=== PATIENT | female | born 1995 | race African-American/Black ===

== ENCOUNTER 2017-05-21 21:39 | Emergency (ER) | payer SELFPAY, OTHER | END 2017-05-21 22:15 | disposition left against medical advice (07) | LOC: ER 21:39 | DX: M54.5 Low back pain (principal); M79.609 Pain in unspecified limb; Z53.21 Procedure and treatment not carried out due to patient leaving prior to being seen by health care provider ==

== ENCOUNTER 2017-10-29 21:15 | Emergency (ER) | payer SELFPAY ==
[2017-10-29 22:35] LABS: URINE HCG POC HCG POSITIVE (Negative)
[2017-10-29 22:35] LABS: BILIRUBIN,URINE NEGATIVE (NEG); CLARITY,URINE CLEAR; COLOR,URINE YELLOW; GLUCOSE,URINE NEGATIVE (NEG); NITRITE,URINE NEGATIVE (NEG); PROTEIN,URINE NEGATIVE (NEG-TRACE)
[2017-10-29 22:42] LABS: AMORPHOUS SEDIMENT,UR PRESENT /HPF; BACTERIA,URINE FEW /HPF (0-FEW); RBC,URINE OCC /HPF (0-2); SQUAMOUS EPITHELIAL CELL,UR FEW /LPF; TRICHOMONAS,URINE PRESENT; WBC,URINE 20-40 /HPF (0-4)
[2017-10-29 23:07] LABS: ADD MAN DIFF? NO
[2017-10-29 23:10] LABS: BASO % 0 % (0-3); EOS # 0.1 x10^3/uL (0.0-0.7); EOS % 1 % (0-3); HEMATOCRIT 40.9 % (36.0-47.0); LYMPH % 31 % (24-48); MEAN CORPUSCULAR HEMOGLOBIN 30 pg (25-35); MEAN CORPUSCULAR HGB CONC 34 g/dL (31-37); MEAN CORPUSCULAR VOLUME 86 fL (79-100); MONO # 0.6 x10^3/uL (0.0-1.1); MONO % 6 % (0-9); NEUT % 61 % (31-73); PLATELET COUNT 295 x10^3/uL (140-400); RED BLOOD COUNT 4.75 x10^6/uL (3.50-5.40); RED CELL DISTRIBUTION WIDTH 12.8 % (11.5-14.5); WHITE BLOOD COUNT 9.8 x10^3/uL (4.0-11.0)
[2017-10-29 23:18] LABS: ANION GAP 6 (6-14); BLOOD UREA NITROGEN 7 mg/dL (7-20); BUN/CREATININE RATIO 12 (6-20); CALCIUM 9.3 mg/dL (8.5-10.1); CARBON DIOXIDE 28 mmol/L (21-32); CHLORIDE 105 mmol/L (98-107); CREATININE 0.6 mg/dL (0.6-1.0); GFR 154.2; GLUCOSE 78 mg/dL (70-99); POTASSIUM 3.8 mmol/L (3.5-5.1); SODIUM 139 mmol/L (136-145)
[2017-10-29 23:24] LABS: ALBUMIN 4.2 g/dL (3.4-5.0); ALBUMIN/GLOBULIN RATIO 1.2 (1.0-1.7); ALK PHOS 73 U/L (46-116); ALT (SGPT) 17 U/L (14-59); AST (SGOT) 15 U/L (15-37); LIPASE 213 U/L (73-393); TOTAL PROTEIN 7.8 g/dL (6.4-8.2)
[2017-10-29] MEDS: AZITHROMYCIN 250 MG TABLET. PO (23:40)
[2017-10-29] MEDS: cefTRIAXone IM 250 MG VIAL IM (23:40)
[2017-10-29] MEDS: metroNIDAZOLE 500 MG TABLET PO (23:54)
== END 2017-10-29 23:57 | disposition home or self-care (01) ==
LOC: ER 23:57
DX: O23.40 Unspecified infection of urinary tract in pregnancy, unspecified trimester (principal); O98.319 Other infections with a predominantly sexual mode of transmission complicating pregnancy, unspecified trimester; A59.01 Trichomonal vulvovaginitis; Z3A.00 Weeks of gestation of pregnancy not specified
CPT/HCPCS: 36415; 80053; 81001; 81025; 83690; 83735; 84702; 85025; 96372; 99284; J0696; Q0111; Q0144

== ENCOUNTER 2017-11-02 01:09 | Emergency (ER) | payer SELFPAY ==
[2017-11-02 01:46] LABS: ADD MAN DIFF? NO
[2017-11-02 01:47] LABS: BASO % 0 % (0-3); EOS # 0.2 x10^3/uL (0.0-0.7); EOS % 2 % (0-3); HEMATOCRIT 37.9 % (36.0-47.0); LYMPH # 3.4 x10^3/uL (1.0-4.8); LYMPH % 29 % (24-48); MEAN CORPUSCULAR HEMOGLOBIN 30 pg (25-35); MEAN CORPUSCULAR HGB CONC 34 g/dL (31-37); MEAN CORPUSCULAR VOLUME 86 fL (79-100); MONO # 0.6 x10^3/uL (0.0-1.1); MONO % 5 % (0-9); NEUT # 7.5 x10^3uL (1.8-7.7); NEUT % 64 % (31-73); PLATELET COUNT 308 x10^3/uL (140-400); RED BLOOD COUNT 4.38 x10^6/uL (3.50-5.40); RED CELL DISTRIBUTION WIDTH 12.8 % (11.5-14.5); WHITE BLOOD COUNT 11.8 x10^3/uL (4.0-11.0)
== END 2017-11-02 03:05 | disposition home or self-care (01) ==
LOC: ER 01:09
DX: O03.9 Complete or unspecified spontaneous abortion without complication (principal); Z3A.00 Weeks of gestation of pregnancy not specified
CPT/HCPCS: 36415; 84702; 85025; 99284

== ENCOUNTER 2018-01-08 12:26 | Emergency (ER) | payer SELFPAY ==
[~2018-01-08] VITALS: Ht 165.1 cm; Wt 54.4 kg
[~2018-01-08 12:26] MED LIST: CEPH-264 PO; METR500T PO; PNV1TABL25 PO
[2018-01-08 12:34] VITALS: BP 121/67
[2018-01-08 13:23] LABS: BILIRUBIN,URINE NEGATIVE (NEG); CLARITY,URINE CLEAR; COLOR,URINE YELLOW; NITRITE,URINE NEGATIVE (NEG); PROTEIN,URINE NEGATIVE (NEG-TRACE)
[2018-01-08 13:34] LABS: SQUAMOUS EPITHELIAL CELL,UR MANY /LPF
[2018-01-08 13:35] LABS: BACTERIA,URINE FEW /HPF (0-FEW); RBC,URINE 0 /HPF (0-2)
[2018-01-08] MEDS: AZITHROMYCIN 250 MG TABLET. PO ONE (13:49)
[2018-01-08] MEDS: cefTRIAXone IM 250 MG VIAL IM ONE (13:50)
[2018-01-08] MEDS ORDERED: NITR100C62 PO (14:16)
--- NOTE | 2018-01-08 14:17 | PHYS DOC ---
Past Medical History Past Medical History: No Pertinent History Past Surgical History: No Surgical History Alcohol Use: None Drug Use: None Adult General Chief Complaint Chief Complaint: VAGINAL PROBLEM HPI HPI Patient is a 22 year old female who presents with low mid abdominal cramping and vaginal discharge for the last 2 weeks. Patient states she is sexually active and her last missed her period was December 24. He states that she does have some itching. He states her discharge is white. Patient denies any urinary frequency or burning with urination. She has no known drug allergies and takes no medications daily has no medical history and denies any surgical history. Review of Systems Review of Systems Constitutional: Denies fever or chills [] Eyes: Denies change in visual acuity, redness, or eye pain [] HENT: Denies nasal congestion or sore throat [] Respiratory: Denies cough or shortness of breath [] Cardiovascular: No additional information not addressed in HPI [] GI: Denies abdominal pain, nausea, vomiting, bloody stools or diarrhea [] : Vaginal discharge. Denies dysuria or hematuria [] Musculoskeletal: Denies back pain or joint pain [] Integument: Denies rash or skin lesions [] Neurologic: Denies headache, focal weakness or sensory changes [] All other systems were reviewed and found to be within normal limits, except as documented in this note. Current Medications Current Medications Current Medications Medications (Trade) Dose Ordered Sig/Laura Start Time Stop Time Status Last Admin Dose Admin Azithromycin (Zithromax) 1,000 mg 1X ONCE 01/08/18 13:00 01/08/18 13:03 DC 01/08/18 13:49 1,000 MG Ceftriaxone Sodium (Rocephin Im) 250 mg 1X ONCE 01/08/18 13:00 01/08/18 13:03 UT Allergies Allergies Allergies Coded Allergies Type Severity Reaction Last Updated Verified No Known Drug Allergies 06/23/13 No Physical Exam Physical Exam Constitutional: Well developed, well nourished, no acute distress, non-toxic appearance. [] HENT: Normocephalic, atraumatic, bilateral external ears normal, oropharynx moist, no oral exudates, nose normal. [] Eyes: PERRLA, EOMI, conjunctiva normal, no discharge. [] Neck: Normal range of motion, no tenderness, supple, no stridor. [] Cardiovascular:Heart rate regular rhythm, no murmur [] Lungs & Thorax: Bilateral breath sounds clear to auscultation [] Abdomen: Bowel sounds normal, soft, no tenderness, no masses, no pulsatile masses. Cervical white discharge.[] Skin: Warm, dry, no erythema, no rash. [] Back: No tenderness, no CVA tenderness. [] Extremities: No tenderness, no cyanosis, no clubbing, ROM intact, no edema. [] Neurologic: Alert and oriented X 3, normal motor function, normal sensory function, no focal deficits noted. [] Psychologic: Affect normal, judgement normal, mood normal. [] Current Patient Data Vital Signs Vital Signs Date Time Temp Pulse Resp B/P (MAP) Pulse Ox O2 Delivery O2 Flow Rate FiO2 01/08/18 12:34 98.8 83 16 121/67 (85) 100 Room Air 98.8 Lab Values Laboratory Tests Test 01/08/18 12:32 01/08/18 12:47 01/08/18 13:40 Urine Collection Type Unknown Urine Color Yellow Urine Clarity Clear Urine pH 7.0 Urine Specific [place] 1.020 Urine Protein Negative mg/dL (NEG-TRACE) Urine Glucose (UA) Negative mg/dL (NEG) Urine Ketones (Stick) Negative mg/dL (NEG) Urine Blood Negative (NEG) Urine Nitrite Negative (NEG) Urine Bilirubin Negative (NEG) Urine Urobilinogen Dipstick 1.0 mg/dL (0.2 mg/dL) Urine Leukocyte Esterase Small (NEG) Urine RBC 0 /HPF (0-2) Urine WBC 5-10 /HPF (0-4) Urine Squamous Epithelial Cells Many /LPF Urine Bacteria Few /HPF (0-FEW) Urine Mucus Slight /LPF POC Urine HCG, Qualitative Hcg negative (Negative) Chlamydia DNA Probe Negative (Negative) Neisseria gonorrhoeae DNA Probe Negative (Negative) Microbiology 01/08/18 Wet Prep - Final, Complete 01/08/18 Urine Culture - Final, Complete 01/08/18 Urine Culture Result 1 (HOWARD) - Final, Complete EKG EKG [] Radiology/Procedures Radiology/Procedures [] Course & Med Decision Making Course & Med Decision Making Patient is a 22 year old female who presents with low mid abdominal cramping and vaginal discharge for the last 2 weeks. Patient states she is sexually active and her last missed her period was December 24. He states that she does have some itching. He states her discharge is white. Patient denies any urinary frequency or burning with urination. She has no known drug allergies and takes no medications daily has no medical history and denies any surgical history. Patient agreed to be treated prophylactically for sexually transmitted diseases but would only take the azithromycin and refuses the Rocephin IM. Patient states she did rather just wait to see if she goes back with any STDs before she takes the Rocephin. Patient has no external vaginal lesions or redness. Patient does have cervical white discharge. Abdomen is soft and nontender. Lungs are clear bilaterally. Heart rate regular and without murmur. Patient will be treated for urinary tract infection. [] Staff Physician Addendum: I was working in the ER during the course of this patient's visit. I was available for consultation as needed, but I was not directly involved in the care of this patient. Dragon Disclaimer Dragon Disclaimer This electronic medical record was generated, in whole or in part, using a voice recognition dictation system. Departure Departure Impression: Primary Impression: Vaginal discharge Additional Impression: Urinary tract infection Disposition: 01 HOME, SELF-CARE Condition: STABLE Referrals: NO PCP (PCP) Patient Instructions: Sexually Transmitted Disease, Urinary Tract Infection Additional Instructions: Follow up with your primary care. Take medications as prescribed. Scripts Nitrofurantoin Monohyd/M-Cryst (MACROBID 100 MG CAPSULE) 100 Mg Capsule 1 CAP PO BID, #10 CAP Prov: MASON HOOKS APRN 01/08/18 Problem Qualifiers Additional Impression: Urinary tract infection Urinary tract infection type: site unspecified Hematuria presence: without hematuria Qualified Codes: N39.0 - Urinary tract infection, site not specified MASON HOOKS APRN Jan 08, 2018 14:17 JAVI MUJICA MD Jan 12, 2018 18:27
[2018-01-09 15:35] LABS: GC PROBE Negative (Negative)
== END 2018-01-08 14:20 | disposition home or self-care (01) ==
LOC: ER 12:26
DX: N39.0 Urinary tract infection, site not specified (principal); N89.8 Other specified noninflammatory disorders of vagina
CPT/HCPCS: 81001; 81025; 87086; 87491; 87591; 99284; Q0111; Q0144

== ENCOUNTER 2018-03-08 19:57 | Emergency (ER) | payer MEDICAID ==
[~2018-03-08] VITALS: Ht 165.1 cm; Wt 56.7 kg
[~2018-03-08 19:57] MED LIST changes: +NITR100C62 PO
[2018-03-08 20:27] LABS: BILIRUBIN,URINE NEGATIVE (NEG); CLARITY,URINE CLEAR; COLOR,URINE YELLOW; NITRITE,URINE NEGATIVE (NEG); PH,URINE 5.5; PROTEIN,URINE 100 mg/dL (NEG-TRACE); UROBILINOGEN,URINE 0.2 mg/dL (0.2 mg/dL)
[2018-03-08 20:39] LABS: BACTERIA,URINE MOD /HPF (0-FEW); RBC,URINE 0 /HPF (0-2); SQUAMOUS EPITHELIAL CELL,UR MOD /LPF
[2018-03-08 20:44] VITALS: BP 102/61
--- NOTE | 2018-03-08 21:21 | PHYS DOC ---
Past Medical History Past Medical History: UTI Past Surgical History: No Surgical History Alcohol Use: None Drug Use: None Adult General Chief Complaint Chief Complaint: ABDOMINAL PAIN HPI HPI Patient is a 22 year old female in no significant medical history who presents today complaining of substernal chest pain that only occurs at work intermittently for 2 weeks. Patient states this pain is stress related to her job. She states she thinks she could have acid reflex but she is not sure. Patient denies any pain right now in the ED. She is playful talking in no distress. Denies any chance she is . Denies any nausea vomiting. Denies any use of hormones all steroids, denies any recent hospitalizations, denies any personal family history of PEs/DVT, denies any shortness of breath, denies any recent surgeries, denies any unilateral leg pain. Review of Systems Review of Systems Constitutional: Denies fever or chills [] Eyes: Denies change in visual acuity, redness, or eye pain [] HENT: Denies nasal congestion or sore throat [] Respiratory: Denies cough or shortness of breath [] Cardiovascular: Reports substernal chest GI: Denies abdominal pain, nausea, vomiting, bloody stools or diarrhea [] : Denies dysuria or hematuria [] Musculoskeletal: Denies back pain or joint pain [] Integument: Denies rash or skin lesions [] Neurologic: Denies headache, focal weakness or sensory changes [] All other systems were reviewed and found to be within normal limits, except as documented in this note. Allergies Allergies Allergies Coded Allergies Type Severity Reaction Last Updated Verified No Known Drug Allergies 06/23/13 No Physical Exam Physical Exam Constitutional: Well developed, well nourished, no acute distress, non-toxic appearance. [] HENT: Normocephalic, atraumatic, bilateral external ears normal, oropharynx moist, no oral exudates, nose normal. [] Eyes: PERRLA, EOMI, conjunctiva normal, no discharge. [] Neck: Normal range of motion, no tenderness, supple, no stridor. [] Cardiovascular:Heart rate regular rhythm, no murmur [] Lungs & Thorax: Bilateral breath sounds clear to auscultation [] Abdomen: Bowel sounds normal, soft, no tenderness, no masses, no pulsatile masses. [] Skin: Warm, dry, no erythema, no rash. [] Back: No tenderness, no CVA tenderness. [] Extremities: No tenderness, no cyanosis, no clubbing, ROM intact, no edema. [] Neurologic: Alert and oriented X 3, normal motor function, normal sensory function, no focal deficits noted. [] Psychologic: Affect normal, judgement normal, mood normal. [] Current Patient Data Vital Signs Vital Signs Date Time Temp Pulse Resp B/P (MAP) Pulse Ox O2 Delivery O2 Flow Rate FiO2 03/08/18 20:00 98.3 89 16 126/70 (88) 98 Room Air 98.3 Lab Values Laboratory Tests Test 03/08/18 20:08 03/08/18 20:21 Urine Collection Type Unknown Urine Color Yellow Urine Clarity Clear Urine pH 5.5 Urine Specific [place] 1.015 Urine Protein 100 mg/dL (NEG-TRACE) Urine Glucose (UA) Negative mg/dL (NEG) Urine Ketones (Stick) Negative mg/dL (NEG) Urine Blood Negative (NEG) Urine Nitrite Negative (NEG) Urine Bilirubin Negative (NEG) Urine Urobilinogen Dipstick 0.2 mg/dL (0.2 mg/dL) Urine Leukocyte Esterase Negative (NEG) Urine RBC 0 /HPF (0-2) Urine WBC 1-4 /HPF (0-4) Urine Squamous Epithelial Cells Mod /LPF Urine Bacteria Mod /HPF (0-FEW) Urine Mucus Mod /LPF POC Urine HCG, Qualitative Hcg negative (Negative) EKG EKG [] Radiology/Procedures Radiology/Procedures [] Course & Med Decision Making Course & Med Decision Making Pertinent Labs and Imaging studies reviewed. (See chart for details) This is a 22-year-old female patient presented to the ED today complaining of substernal chest pain that only occurs when she is at work. No pain right now. Patient is playful distress, negative urine hCG, urine analysis is negative for infection. PERC score is 0. Vitals are normal. Will be discharged to home. Follow-up with her own PCP in 1-2 weeks. Dragon Disclaimer Dragon Disclaimer This electronic medical record was generated, in whole or in part, using a voice recognition dictation system. Departure Departure Impression: Primary Impression: Chest pain Additional Impression: Acid reflux Disposition: HOME, SELF-CARE Condition: STABLE Referrals: NO PCP (PCP) follow up with your doctor as needed Patient Instructions: Chest Pain (Nonspecific), Diet for Gastroesophageal Reflux Disease, Adult, Gastroesophageal Reflux Disease, Adult Additional Instructions: You were evaluated in the emergency room. Consider reducing your stress levels at work. You can take with Zantac OTC and see if it relieves some your symptoms . Problem Qualifiers Primary Impression: Chest pain Chest pain type: unspecified Qualified Codes: R07.9 - Chest pain, unspecified CHET MORGAN BUS TROLLEY AND TAXI INSTRUCTOR Mar 08, 2018 21:21
== END 2018-03-08 21:30 | disposition home or self-care (01) ==
LOC: ER 19:57
DX: R07.2 Precordial pain (principal); K21.9 Gastro-esophageal reflux disease without esophagitis; Z87.440 Personal history of urinary (tract) infections
CPT/HCPCS: 81001; 81025; 99283

== ENCOUNTER 2018-08-23 13:58 | Emergency (ER) | payer MEDICAID, SELFPAY ==
[~2018-08-23] VITALS: Ht 165.1 cm; Wt 56.7 kg
[2018-08-23] MEDS ORDERED: PROCHLORPERAZINE 5 MG TABLET. PO STA (15:18)
[2018-08-23 15:25] LABS: BILIRUBIN,URINE NEGATIVE (NEG); CLARITY,URINE CLEAR; COLOR,URINE YELLOW; NITRITE,URINE NEGATIVE (NEG); PH,URINE 6.5; PROTEIN,URINE NEGATIVE (NEG-TRACE); UROBILINOGEN,URINE 0.2 mg/dL (0.2 mg/dL)
[2018-08-23] MEDS ORDERED: SUMAtriptan SUCCINATE 25 MG TABLET PO ONE (15:30)
[2018-08-23] MEDS ORDERED: ONDANSETRON ODT 4 MG TAB.RAPDIS. PO ONE (15:30)
[2018-08-23] MEDS ORDERED: predniSONE 10 MG TABLET PO ONE (15:30)
[2018-08-23] MEDS ORDERED: diphenhydrAMINE HCL 25 MG CAPSULE PO ONE (15:30)
[2018-08-23 15:36] LABS: BACTERIA,URINE MOD /HPF (0-FEW); SQUAMOUS EPITHELIAL CELL,UR MOD /LPF
--- NOTE | 2018-08-23 15:37 | EKG ---
[facility] [address] [place] [address] Test Date: 2018-08-23 Test Time: 15:38:37 Pat Name: JEROME FIELDS Department: Room: Gender: F Contracting Support Specialist: : 1995 Requested By: CHET MORGAN Order Number: [id number] Reading MD: Measurements Intervals [place] Rate: 68 P: 52 MD: 158 QRS: 87 QRSD: 70 T: 48 QT: 340 QTc: 366 Interpretive Statements SINUS RHYTHM LEFT ATRIAL ABNORMALITY QRS(T) CONTOUR ABNORMALITY CONSIDER ANTEROSEPTAL MYOCARDIAL DAMAGE ABNORMAL ECG RI6.01 Unconfirmed report No previous ECG available for comparison
[2018-08-23 16:00] VITALS: BP 111/68
--- NOTE | 2018-08-23 17:38 | PHYS DOC ---
Past Medical History Past Medical History: No Pertinent History, UTI Past Surgical History: No Surgical History Alcohol Use: None Drug Use: None Adult General Chief Complaint Chief Complaint: ANXIETY/PANIC ATTACK HPI HPI Patient is a 23 year old female with history of migraine headaches presenting today complaining of 10 out of 10 generalized migraine headache with no nausea, no vomiting no photophobia, symptoms began 2 days ago. She states the headache i s intermittent and began gradually. Denies this being the worst headache in her life. Denies anything specifically exacerbating or relieving the headache. She is in the room smiling in no distress. She states some O she was sitting in the waiting room and developed 10 out of 10 left upper chest pain. Denies any pain radiating. Denies anything relieving or exacerbating the pain. Describes the pain as sharp. Denies being on any control any hormones, denies any recent hospitalizations. Denies any unilateral leg pain. Denies any chance she is . Denies any shortness of breath. Denies any family or personal history of cardiac related events. Review of Systems Review of Systems Constitutional: Denies fever or chills [] Eyes: Denies change in visual acuity, redness, or eye pain [] HENT: Denies nasal congestion or sore throat [] Respiratory: Denies cough or shortness of breath [] Cardiovascular: Reports chest pain GI: Denies abdominal pain, nausea, vomiting, bloody stools or diarrhea [] : Denies dysuria or hematuria [] Musculoskeletal: Denies back pain or joint pain [] Integument: Denies rash or skin lesions [] Neurologic: He reports migraine headache, denies focal weakness or sensory changes [] All other systems were reviewed and found to be within normal limits, except as documented in this note. Current Medications Current Medications Current Medications Medications (Trade) Dose Ordered Sig/Laura Start Time Stop Time Status Last Admin Dose Admin Diphenhydramine HCl (Benadryl) 25 mg 1X ONCE 08/23/18 15:30 08/23/18 15:31 DC Ondansetron HCl (Zofran Odt) 4 mg 1X ONCE 08/23/18 15:30 08/23/18 15:31 DC Prednisone (Prednisone) 50 mg 1X ONCE 08/23/18 15:30 08/23/18 15:31 DC Prochlorperazine Maleate (Compazine) 10 mg 1X STAT 08/23/18 15:18 08/23/18 15:19 DC Sumatriptan Succinate (Imitrex) 25 mg 1X ONCE 08/23/18 15:30 08/23/18 15:31 DC Allergies Allergies Allergies Coded Allergies Type Severity Reaction Last Updated Verified No Known Drug Allergies 08/23/18 No Physical Exam Physical Exam Constitutional: Well developed, well nourished, no acute distress, non-toxic appearance. [] HENT: Normocephalic, atraumatic, bilateral external ears normal, oropharynx moist, no oral exudates, nose normal. [] Eyes: PERRLA, EOMI, conjunctiva normal, no discharge. [] Neck: Normal range of motion, no tenderness, supple, no stridor. [] Cardiovascular:Heart rate regular rhythm, no murmur [] Lungs & Thorax: Bilateral breath sounds clear to auscultation [] Abdomen: Bowel sounds normal, soft, no tenderness, no masses, no pulsatile masses. [] Skin: Warm, dry, no erythema, no rash. [] Back: No tenderness, no CVA tenderness. [] Extremities: No tenderness, no cyanosis, no clubbing, ROM intact, no edema. [] Neurologic: Alert and oriented X 3, normal motor function, normal sensory function, no focal deficits noted. [] Psychologic: Affect normal, judgement normal, mood normal. [] Current Patient Data Vital Signs Vital Signs Date Time Temp Pulse Resp B/P (MAP) Pulse Ox O2 Delivery O2 Flow Rate FiO2 08/23/18 16:00 76 15 111/68 (82) 100 Room Air 08/23/18 14:15 98.8 98.8 Lab Values Laboratory Tests Test 08/23/18 14:50 08/23/18 14:56 Urine Collection Type Unknown Urine Color Yellow Urine Clarity Clear Urine pH 6.5 Urine Specific [place] 1.025 Urine Protein Negative mg/dL (NEG-TRACE) Urine Glucose (UA) Negative mg/dL (NEG) Urine Ketones (Stick) Negative mg/dL (NEG) Urine Blood Trace (NEG) Urine Nitrite Negative (NEG) Urine Bilirubin Negative (NEG) Urine Urobilinogen Dipstick 0.2 mg/dL (0.2 mg/dL) Urine Leukocyte Esterase Moderate (NEG) Urine RBC 1-2 /HPF (0-2) Urine WBC 11-20 /HPF (0-4) Urine Squamous Epithelial Cells Mod /LPF Urine Bacteria Mod /HPF (0-FEW) Urine Mucus Mod /LPF POC Urine HCG, Qualitative Hcg negative (Negative) EKG EKG 14:[address] Hammonds sinus rhythm HR 72 no STEMI[] Radiology/Procedures Radiology/Procedures [] Course & Med Decision Making Course & Med Decision Making Pertinent Labs and Imaging studies reviewed. (See chart for details) This is a 23-year-old female patient presenting to the ED today with a migraine headache and chest pain. I ordered workup on patient, she eloped. Dragon Disclaimer Dragon Disclaimer This electronic medical record was generated, in whole or in part, using a voice recognition dictation system. Departure Departure Impression: Primary Impression: Migraine headache Additional Impression: Chest pain Disposition: 07 AGAINST MEDICAL ADVICE Condition: STABLE Referrals: NO PCP (PCP) Problem Qualifiers Primary Impression: Migraine headache Migraine type: unspecified Status migrainosus presence: without status migrainosus Intractability: not intractable Qualified Codes: G43.909 - Migraine, unspecified, not intractable, without status migrainosus Additional Impression: Chest pain Chest pain type: unspecified Qualified Codes: R07.9 - Chest pain, unspecified MUTUNGACHET PAINTER DECORATOR August 23, 2018 17:38
--- NOTE | 2018-08-25 11:35 | EKG ---
[facility] [address] [place] [address] Test Date: 2018-08-23 Test Time: 14:23:44 Pat Name: JEROME FIELDS Department: Room: Gender: F Deputy County Attorney: : 1995 Requested By: CHET MORGAN Order Number: [id number] Reading MD: Measurements Intervals [place] Rate: 72 P: 34 RI: 148 QRS: 88 QRSD: 70 T: 34 QT: 334 QTc: 367 Interpretive Statements SINUS RHYTHM QRS(T) CONTOUR ABNORMALITY CONSIDER ANTEROSEPTAL MYOCARDIAL DAMAGE POSSIBLY ABNORMAL ECG RI6.01 No previous ECG available for comparison
== END 2018-08-23 17:43 | disposition left against medical advice (07) ==
LOC: ER 13:58
DX: G43.909 Migraine, unspecified, not intractable, without status migrainosus (principal); R07.89 Other chest pain
CPT/HCPCS: 81001; 81025; 93005; 99285-25

== ENCOUNTER 2019-11-25 16:35 | Emergency (ER) | payer MEDICAID, OTHER ==
[~2019-11-25] VITALS: Ht 165.1 cm; Wt 59.0 kg
[2019-11-25 18:00] VITALS: BP 129/59
[2019-11-25] MEDS ORDERED: TRIA15CR TP (18:44)
--- NOTE | 2019-11-25 18:45 | PHYS DOC ---
Past Medical History Past Medical History: No Pertinent History, UTI (JORDY VILLALOBOS APRN) Past Surgical History: No Surgical History (JORDY VILLALOBOS APRN) Smoking Status: Never Smoker Alcohol Use: None Drug Use: None (JORDY VILLALOBOS APRN) General Adult EDM: Chief Complaint: SKIN RASH/ABSCESS HPI: HPI: Patient is a 24 year old AA female who presents to the emergency department with complaints of itchy rash to her neck and bilateral antecubital areas for the last week. She reports that her skin feels dry and itchy and alaniz when she gets water on it. She denies any drainage, or bleeding from the areas. She denies any new medications, detergents, foods, fragrances, or environmental exposures. The patient currently denies any pain she reports itching. (JORDY VILLALOBOS APRN) Review of Systems: Review of Systems: Constitutional: Denies fever or chills. [] Respiratory: Denies cough or shortness of breath. [] Musculoskeletal: Denies back pain or joint pain. [] Integument: See HPI Neurologic: Denies headache, focal weakness or sensory changes. [] Psychiatric: Denies depression or anxiety. [] (JORDY VILLALOBOS APRN) Heart Score: Risk Factors: Risk Factors: DM, Current or recent (<one month) smoker, HTN, HLP, family history of CAD, obesity. Risk Scores: Score 0 - 3: 2.5% MACE over next 6 weeks - Discharge Home Score 4 - 6: 20.3% MACE over next 6 weeks - Admit for Clinical Observation Score 7 - 10: 72.7% MACE over next 6 weeks - Early Invasive Strategies (JORDY VILLALOBOS APRN) Allergies: Allergies: Allergies Coded Allergies Type Severity Reaction Last Updated Verified No Known Drug Allergies 08/23/18 No (JORDY VILLALOBOS APRN) Physical Exam: PE: Constitutional: Well developed, well nourished, no acute distress, non-toxic appearance. [] HENT: Normocephalic, atraumatic, bilateral external ears normal, nose normal. [] Eyes: PERRLA, EOMI, conjunctiva normal, no discharge. [] Neck: Normal range of motion, no stridor. [] Cardiovascular:Heart rate regular rhythm Lungs & Thorax: Respirations even and unlabored, no retractions, no respiratory distress Skin: Warm, dry; scaly, dry, darkened skin noted over the bilateral antecubital spaces, and left side of the neck, consistent with atopic dermatitis, no drainage or bleeding. Extremities: No cyanosis, ROM intact, no edema. [] Neurologic: Alert and oriented X 3, no focal deficits noted. [] Psychologic: Affect normal, judgement normal, mood normal. [] (JORDY VILLALOBOS APRN) Current Patient Data: Vital Signs: Vital Signs Date Time Temp Pulse Resp B/P (MAP) Pulse Ox O2 Delivery O2 Flow Rate FiO2 11/25/19 17:36 97.2 84 16 112/60 (77) Room Air 97.2 (JORDY VILLALOBOS APRN) EKG: EKG: [] (JORDY VILLALOBOS APRN) Radiology/Procedures: Radiology/Procedures: [] (JORDY VILLALOBOS APRN) Course & Med Decision Making: Course & Med Decision Making Pertinent Labs and Imaging studies reviewed. (See chart for details) [] (JORDY VILLALOBOS APRN) Dragon Disclaimer: Dragon Disclaimer: This electronic medical record was generated, in whole or in part, using a voice recognition dictation system. (JORDY VILLALOBOS APRN) Departure Departure Impression: Primary Impression: Atopic dermatitis Qualified Codes: L20.89 - Other atopic dermatitis Disposition: HOME, SELF-CARE Condition: STABLE Referrals: NO PCP (PCP) Patient Instructions: Eczema Additional Instructions: Fill the prescription and use it as directed. Make sure to use soaps for sensitive skin. Limit hot showers, and apply moisturizing cream such as Cetaphil twice daily. Follow up with your Primary care doctor for reevaluation, return to the ER if symptoms worsen. Scripts Triamcinolone Acetonide (TRIAMCINOLONE ACETONIDE 0.5% CREAM) 15 Gm Cream..g. 1 CAMILA TP BID, #30 GM 1 Refill Prov: JORDY VILLALOBOS APRN 11/25/19 Justicifation of Admission Dx: Justifications for Admission: Justification of Admission Dx: N/A (BOGUSLAW,JORDY D SUPPLIER RELATIONSHIP DIRECTOR) Attending Signature Attending Signature I have reviewed the PA/HEAT TREAT OPERATOR's note and plan of care. I was available for consultation as needed during the patient's visit in the emergency department. I agree with the clinical impression, plan, and disposition. (SHANNON NUÑEZ DO) JORDY VILLALOBOS APRN Nov 25, 2019 18:44 SHANNON NUÑEZ DO Nov 28, 2019 07:59
== END 2019-11-25 18:48 | disposition home or self-care (01) ==
LOC: ER 16:35
DX: L20.89 Other atopic dermatitis (principal)
CPT/HCPCS: 99283

== ENCOUNTER 2019-12-17 19:58 | Emergency (ER) | payer OTHER ==
[~2019-12-17] VITALS: Ht 165.1 cm; Wt 59.1 kg
[~2019-12-17 19:58] MED LIST changes: +TRIA15CR TP
[2019-12-17 20:32] LABS: BILIRUBIN,URINE NEGATIVE (NEG); CLARITY,URINE CLEAR; COLOR,URINE YELLOW; NITRITE,URINE NEGATIVE (NEG); PROTEIN,URINE NEGATIVE (NEG-TRACE)
[2019-12-17 20:38] LABS: SQUAMOUS EPITHELIAL CELL,UR MANY /LPF
[2019-12-17 20:39] LABS: BACTERIA,URINE MANY /HPF (0-FEW)
[2019-12-17 20:42] LABS: RBC,URINE 0 /HPF (0-2)
[2019-12-17 20:48] VITALS: BP 110/56
[2019-12-17] MEDS ORDERED: IBUP-1007 PO (22:06)
[2019-12-17] MEDS ORDERED: NITR100C62 PO (22:06)
--- NOTE | 2019-12-17 22:06 | PHYS DOC ---
Past Medical History Past Medical History: No Pertinent History Past Surgical History: No Surgical History Smoking Status: Never Smoker Alcohol Use: None Drug Use: None General Adult EDM: Chief Complaint: PAIN ON URINATION HPI: HPI: 24-year-old ([facility]) female who denies any significant past [facility] history presents to the ED with complaints of right anterior rib pain worsened with deep respirations. Denies any focal trauma recent upper respiratory infection or fever. Patient states she has irregular menses. Patient told her mom she had pain over her right ribs and her mom told her it was likely a UTI. Does not believe she has been exposed to COVID. Patient does not take any routine medications, no control. Denies any recent hospitalizations, trauma, surgeries or immobilizations. No history of PE or DVT. Review of Systems: Review of Systems: Constitutional: Denies fever or chills. [] Eyes: Denies change in visual acuity. [] HENT: Denies nasal congestion or sore throat. [] Respiratory: Denies cough or shortness of breath. [] Or hemoptysis Cardiovascular: Denies chest pain or edema. [] GI: Denies abdominal pain, nausea, vomiting, bloody stools or diarrhea. [] : Denies dysuria. [] Or hematuria or increased urinary frequency, no vaginal bleeding or abnormal discharge Musculoskeletal: Denies back pain or joint pain. [] Or flank pain Integument: Denies rash. [] Neurologic: Denies headache, focal weakness or sensory changes. [] Endocrine: Denies polyuria or polydipsia. [] Lymphatic: Denies swollen glands. [] Psychiatric: Denies depression or anxiety. [] Heart Score: Risk Factors: Risk Factors: DM, Current or recent (<one month) smoker, HTN, HLP, family history of CAD, obesity. Risk Scores: Score 0 - 3: 2.5% MACE over next 6 weeks - Discharge Home Score 4 - 6: 20.3% MACE over next 6 weeks - Admit for Clinical Observation Score 7 - 10: 72.7% MACE over next 6 weeks - Early Invasive Strategies Allergies: Allergies: Allergies Coded Allergies Type Severity Reaction Last Updated Verified No Known Drug Allergies 08/23/18 No Physical Exam: PE: Constitutional: Well developed, well nourished, no acute distress, non-toxic appearance. [] HENT: Normocephalic, atraumatic, Eyes: EOMI, conjunctiva normal, no discharge. [] Neck: Normal range of motion, supple, no stridor. [] Cardiovascular:Heart rate regular rhythm, no murmur [] Lungs & Thorax: Bilateral breath sounds clear to auscultation []right anterior lower rib pain - cannot reproduce with exam Abdomen: Bowel sounds normal, soft, no tenderness, no masses, no pulsatile masses. [] no murphys sign Skin: Warm, dry, no erythema, no rash. [] Back: No tenderness, no CVA tenderness. [] Extremities: No tenderness, no cyanosis, no clubbing, ROM intact, no edema. [] Neurologic: Alert and oriented X 3, normal motor function, normal sensory function, no focal deficits noted. [] Psychologic: Affect normal, judgement normal, mood normal. [] Current Patient Data: Labs: Laboratory Tests Test 12/17/19 20:01 12/17/19 20:31 Urine Collection Type Unknown Urine Color Yellow Urine Clarity Clear Urine pH 6.0 (<5.0-8.0) Urine Specific [place] 1.020 (1.000-1.030) Urine Protein Negative mg/dL (NEG-TRACE) Urine Glucose (UA) Negative mg/dL (NEG) Urine Ketones (Stick) 40 mg/dL (NEG) Urine Blood Negative (NEG) Urine Nitrite Negative (NEG) Urine Bilirubin Negative (NEG) Urine Urobilinogen Dipstick 2.0 mg/dL (0.2 mg/dL) Urine Leukocyte Esterase Moderate (NEG) Urine RBC 0 /HPF (0-2) Urine WBC 11-20 /HPF (0-4) Urine Squamous Epithelial Cells Many /LPF Urine Bacteria Many /HPF (0-FEW) Urine Mucus Marked /LPF POC Urine HCG, Qualitative Hcg negative (Negative) Vital Signs: Vital Signs Date Time Temp Pulse Resp B/P (MAP) Pulse Ox O2 Delivery O2 Flow Rate FiO2 12/17/19 20:48 97.8 90 18 110/56 (74) 97 Room Air 97.8 EKG: EKG: [] Radiology/Procedures: Radiology/Procedures: [] Impression: 0 criteria No need for further workup, as <2% chance of PE. If no criteria are positive and clinicians pre-test probability is <15%, PERC Rule criteria are satisfied. Course & Med Decision Making: Course & Med Decision Making Pertinent Labs and Imaging studies reviewed. (See chart for details) Concern for atraumatic anterior rib pain over right sided rib cartilages, with no underlying abdominal pain, nausea, vomiting or fever/cough. Suspect costochondritis. Pt denies covid sxs. Chest x-ray reviewed by myself shows no focal consolidation or pneumothorax, no abdominal free air. Patient very well- appearing. PERC rule negative. Will recommend NSAIDs [id number] for pain. Urinalysis is contaminated - will tx. ED return precautions given for he moptysis, worsening fever cough or severe pain. Encouraged urgent outpatient follow-up with PMD. Life-threatening processes were considered but are low suspicion at this time, given history and physical exam. Pt was educated on all prescription medications and adverse effects. All patient's questions were answered and pt was stable at time of discharge. Differential includes acute myocardial infarction, aortic dissection, congestive heart failure, esophageal injury including rupture, surgical abdomen, ar rhythmia, cardiomyopathy, myocarditis, pericarditis, peptic ulcer disease, pneumomediastinum, pneumonia, pneumothorax, pulmonary embolus, unstable angina, rib fracture, contusion, pericardial tamponade or effusion, pulmonary contusion I spoken with the patient and her caregivers. I explained the patient's condition, diagnoses and treatment plan based on the information available to me at this time. I have answered the patient and her caregiver's questions and addressed any concerns. The patient and her caregivers have a good understanding of patient's diagnosis, condition and treatment plan as can be expected at this point. Vital signs have been stable. Patient's condition is stable and appropriate for discharge from the emergency department. Patient will pursue further outpatient evaluation with primary care physician or other designated or consulting physician as outlined in the discharge instructions. The patient and/or caregivers are agreeable to this plan of care and follow-up instructions have been explained in detail. The patient and/or caregivers have received these instructions in written form and have expressed an understanding of the discharge instructions. The patient and/or caregivers are aware that any significant change of condition or worsening of symptoms should prompt immediate return to this or the closest emergency department or call to 911. Tyrese Disclaimer: Tyrese Disclaimer: This electronic medical record was generated, in whole or in part, using a voice recognition dictation system. Departure Departure Impression: Primary Impression: Costochondritis Additional Impression: UTI (urinary tract infection) Disposition: 01 HOME, SELF-CARE Condition: STABLE Referrals: NO PCP (PCP) Gisela Laboy MD Primary Specialties Family Medicine [facility], [place] Address: [address] [place] [address] Patient Instructions: Costochondritis, Dysuria Additional Instructions: EMERGENCY DEPARTMENT GENERAL DISCHARGE INSTRUCTIONS Thank you for coming to [facility] Emergency Department (ED) today and trusting us with you care. We trust that you had a positive experience in our Emergency Department. If you wish to speak to the department management, you may call the Director at [phone]. YOUR FOLLOW UP INSTRUCTIONS ARE FOLLOWS: 1. Do you have a private Doctor? If you do not have a private doctor, please ask for a resource list of physicians or clinics that may be able to assist you with follow up care. 2. The Emergency Physicain has interpreted your x-rays. The X-Ray specialist will also review them. If there is a change in the findings, you will be notified in 48 hours when at all possible. 3. A lab test or culture has been done, your results will be reviewed and you will be notified if you need a change in treatment. ADDITIONAL INSTRUCTIONS AND INFORMATION: 1. Your care today has been supervised by a physician who is specially trained in emergency care. Many problems require more than one evaluation for a complete diagnosis and treatment. We recommend that you schedule your follow up appointment as recommended to ensure complete treatment of you illness or injury. If you are unable to obtain follow up care and continue to have a problem, or if your condition worsens, we recommend that you return to the ED. 2. We are not able to safely determine your condition over the phone nor are we able to give sound medical advice over the phone. For these safety reasons, if you call for medical advice we will ask you to come to the ED for further evaluation. 3. If you have any questions regarding these discharge instructions please call the ED at [phone]. SAFETY INFORMATION: In the interest of safety, wellness, and injury prevention; we encourage you to wear your sealbelt, if you smoke; quite smoking, and we encourage family to use a protective helmet for bicycling and other sporting events that present an increased risk for head injury. IF YOUR SYMPTOMS WORSEN OR NEW SYMPTOMS DEVELOP, OR YOU HAVE CONCERNS ABOUT YOUR CONDITION; OR IF YOUR CONDITION WORSENS WHILE YOU ARE WAITING FOR YOUR FOLLOW UP APPOINTMENT; EITHER CONTACT YOUR PRIMARY CARE DOCTOR, THE PHYSICIAN WHOSE NAME AND NUMBER YOU WERE GIVEN, OR RETURN TO THE ED IMMEDIATELY. Scripts Nitrofurantoin Monohyd/M-Cryst (MACROBID 100 MG CAPSULE) 100 Mg Capsule 1 CAP PO BID for 7 Days, #14 CAP 0 Refills Prov: FAY MCCORMICK DO 12/17/19 Ibuprofen (IBUPROFEN) 600 Mg Tablet 400 MG PO PRN Q6HRS PRN for PAIN, #20 TAB take with food or milk Prov: FAY MCCORMICK DO 12/17/19 Justicifation of Admission Dx: Justifications for Admission: Justification of Admission Dx: N/A FAY MCCORMICK DO Dec 17, 2019 22:06
--- NOTE | 2019-12-17 23:08 | RAD ---
CHEST PA LATERAL History: Reason: right anterior rib pain / Spl. Instructions: / History: Comparison: Two-view chest September 02, 2014. Findings: The cardiomediastinal silhouette is normal. Pulmonary vasculature is normal. Stable mild elevation right hemidiaphragm. The lungs are clear. No pleural effusion or pneumothorax is seen. There is no acute bone abnormality. IMPRESSION: No acute cardiopulmonary process. Electronically signed by: Michael Metzger MD (12/17/2019 11:05 PM) [facility]
== END 2019-12-17 22:24 | disposition home or self-care (01) ==
LOC: ER 19:58
DX: N39.0 Urinary tract infection, site not specified (principal); M94.0 Chondrocostal junction syndrome [Tietze]
CPT/HCPCS: 71046; 81001; 81025; 99284

== ENCOUNTER 2020-01-18 19:08 | Emergency (ER) | payer OTHER ==
[~2020-01-18] VITALS: Ht 165.1 cm; Wt 55.8 kg
[~2020-01-18 19:08] MED LIST changes: +IBUP-1007 PO
[2020-01-18 19:11] VITALS: BP 124/68
[2020-01-18] MEDS ORDERED: DOCUSATE 100 MG/10 ML SOLUTION. AS STA (19:25)
--- NOTE | 2020-01-18 19:45 | PHYS DOC ---
Past Medical History Past Medical History: No Pertinent History Past Surgical History: No Surgical History Smoking Status: Never Smoker Alcohol Use: None Drug Use: None General Adult EDM: Chief Complaint: FOREIGNBODY EAR HPI: HPI: Patient is a 24 year old 24-year-old female patient presenting to the ED today complaining of foreign object in the left ear canal likely earwax per her statement. She states she has tried using hydrogen peroxide as well as resting her left ear with no success. Denies any hearing loss. Review of Systems: Review of Systems: Constitutional: Denies fever or chills. [] HENT: Reports foreign object to the left ear canal, denies nasal congestion or sore throat. [] Musculoskeletal: Denies back pain or joint pain. [] Integument: Denies rash. [] Neurologic: Denies headache, focal weakness or sensory changes. [] Psychiatric: Denies depression or anxiety. [] Heart Score: Risk Factors: Risk Factors: DM, Current or recent (<one month) smoker, HTN, HLP, family history of CAD, obesity. Risk Scores: Score 0 - 3: 2.5% MACE over next 6 weeks - Discharge Home Score 4 - 6: 20.3% MACE over next 6 weeks - Admit for Clinical Observation Score 7 - 10: 72.7% MACE over next 6 weeks - Early Invasive Strategies Current Medications: Current Medications Medications (Trade) Dose Ordered Sig/Laura Start Time Stop Time Status Last Admin Dose Admin Docusate Sodium (Colace Solution) 100 mg 1X STAT 01/18/20 19:25 01/18/20 19:28 DC Allergies: Allergies: Allergies Coded Allergies Type Severity Reaction Last Updated Verified No Known Drug Allergies 08/23/18 No Physical Exam: PE: Constitutional: Well developed, well nourished, no acute distress, non-toxic appearance. [] HENT: Normocephalic, atraumatic, bilateral external ears normal, oropharynx moist, no oral exudates, nose normal. [] Left ear canal is impacted with cerumen. The tragus was recently pierced and the area is infected there is erythema as well as a small abscess that are surrounding the piercing. Patient states she has been draining pus from the region. Abdomen: Bowel sounds normal, soft, no tenderness, no masses, no pulsatile masses. [] Skin: Warm, dry, no erythema, no rash. [] Back: No tenderness, no CVA tenderness. [] Extremities: No tenderness, no cyanosis, no clubbing, ROM intact, no edema. [] Neurologic: Alert and oriented X 3, normal motor function, normal sensory function, no focal deficits noted. [] Psychologic: Affect normal, judgement normal, mood normal. [] Current Patient Data: Vital Signs: Vital Signs Date Time Temp Pulse Resp B/P (MAP) Pulse Ox O2 Delivery O2 Flow Rate FiO2 01/18/20 19:11 97.8 85 16 124/68 (86) 98 Room Air 97.8 EKG: EKG: [] Radiology/Procedures: Radiology/Procedures: [] Course & Med Decision Making: Course & Med Decision Making Pertinent Labs and Imaging studies reviewed. (See chart for details) This is a 24-year-old female patient presenting to the ED today with cerumen impaction to the left ear canal. Cerumen was removed in the ED. She also has infection around the tragus where she recently got it pierced. I requested she removes the earring and let the area heal up. I put her on Bactrim. Tetanus up to date. Warm compresses recommended to the infected part of the tragus. Informed that pierced region will probably close. Dragon Disclaimer: Dragon Disclaimer: This electronic medical record was generated, in whole or in part, using a voice recognition dictation system. Departure Departure Impression: Primary Impression: Impacted cerumen of left ear Additional Impression: Skin infection Disposition: 01 DC HOME SELF CARE/HOMELESS Condition: STABLE Referrals: NO PCP (PCP) ABHILASH CONRAD MD follow up in 2 weeks Patient Instructions: Cerumen Impaction-SportsMed, Skin Infections Additional Instructions: You were evaluated in the emergency room and noted to have cerumen/earwax. You can use [id number] Debrox next time you have earwax build up. You have an infected area on your exterior ear. Remove the piercing. Apply warm compresses to the area twice a day. Take the prescribed antibiotics until completed. This piercing will likely close. Follow-up with your doctor in 1 to 2 weeks Scripts Sulfamethoxazole/Trimethoprim (BACTRIM 400-80 MG TABLET) 1 Each Tablet 1 TAB PO BID for 10 Days, #20 TAB 0 Refills Prov: KIRANCHET WILBURN APRN 01/18/20 CHET MORGAN APRN Jan 18, 2020 19:45
[2020-01-18] MEDS ORDERED: SULF1TAB23 PO (19:53)
== END 2020-01-18 20:08 | disposition home or self-care (01) ==
LOC: ER 19:08
DX: H61.22 Impacted cerumen, left ear (principal); L08.89 Other specified local infections of the skin and subcutaneous tissue
CPT/HCPCS: 69209; 99283

== ENCOUNTER 2020-05-13 15:53 | Emergency (ER) | payer OTHER ==
[~2020-05-13] VITALS: Ht 165.1 cm; Wt 56.8 kg
[~2020-05-13 15:53] MED LIST changes: +SULF1TAB23 PO
[2020-05-13 17:30] VITALS: BP 130/86
--- NOTE | 2020-05-13 17:56 | PHYS DOC ---
Past Medical History Past Medical History: No Pertinent History (CHET MORGAN APRN) Past Surgical History: No Surgical History (CHET OMRGAN APRN) Smoking Status: Never Smoker Alcohol Use: None Drug Use: None (CHET MORGAN APRN) General Adult EDM: Chief Complaint: VAGINAL PROBLEM HPI: HPI: The RN and I went to patient's room immediately she was roomed, she was on her cell phone talking, we stood in the room for quite some time waiting for her to finish talking on the phone, she did not, we even asked her if she can get off the phone so we can help her, she did not. We finally left the room and told her to let us know when she is ready to be cared for. Patient is a 24 year old female presenting to the ED today complaining of foul odor vaginal discharge, symptoms began a couple days ago. Denies any any chance she is . Denies any concerns for STDs. She states she knows she has bacterial vaginosis. (CHET MORGAN APRN) Review of Systems: Review of Systems: Constitutional: Denies fever or chills. [] GI: Denies abdominal pain, nausea, vomiting, bloody stools or diarrhea. [] : Reports vaginal discharge. Denies dysuria. [] Musculoskeletal: Denies back pain or joint pain. [] Integument: Denies rash. [] Neurologic: Denies headache, focal weakness or sensory changes. [] Psychiatric: Denies depression or anxiety. [] (CHET MORGAN APRN) Heart Score: Risk Factors: Risk Factors: DM, Current or recent (<one month) smoker, HTN, HLP, family history of CAD, obesity. Risk Scores: Score 0 - 3: 2.5% MACE over next 6 weeks - Discharge Home Score 4 - 6: 20.3% MACE over next 6 weeks - Admit for Clinical Observation Score 7 - 10: 72.7% MACE over next 6 weeks - Early Invasive Strategies (CHET MORGAN APRN) Allergies: Allergies: Allergies Coded Allergies Type Severity Reaction Last Updated Verified No Known Drug Allergies 08/23/18 No (CHET MORGAN APRN) Physical Exam: PE: Constitutional: Well developed, well nourished, no acute distress, non-toxic appearance. [] Abdomen: Bowel sounds normal, soft, no tenderness, no masses, no pulsatile masses. [] Pelvic exam External pelvic appears normal, cervix is visualized, closed, no CMT, no adnexal tenderness, trace amount of white discharge in the vaginal vault Skin: Warm, dry, no erythema, no rash. [] Back: No tenderness, no CVA tenderness. [] Extremities: No tenderness, no cyanosis, no clubbing, ROM intact, no edema. [] Neurologic: Alert and oriented X 3, normal motor function, normal sensory function, no focal deficits noted. [] Psychologic: Affect normal, judgement normal, mood normal. [] (CHET MORGAN APRN) Current Patient Data: Labs: Microbiology 05/13/20 Wet Prep - Final, Complete Vital Signs: Vital Signs Date Time Temp Pulse Resp B/P (MAP) Pulse Ox O2 Delivery O2 Flow Rate FiO2 05/13/20 17:30 98.5 77 16 130/86 (101) 99 Room Air 98.5 (CHET MORGAN APRN) EKG: EKG: [] (CHET MORGAN APRN) Radiology/Procedures: Radiology/Procedures: [] (CHET MORGAN APRN) Course & Med Decision Making: Course & Med Decision Making Pertinent Labs and Imaging studies reviewed. (See chart for details) This is a 24-year-old female patient presented to the ED today complaining of vaginal discharge that began couple days ago. Negative urine hCG, wet prep is negative, UA is negative, discharge to home. (CHET MORGAN APRN) Dragon Disclaimer: Dragon Disclaimer: This electronic medical record was generated, in whole or in part, using a voice recognition dictation system. (CHET MORGAN APRN) Departure Departure Impression: Primary Impression: Vaginal discharge Disposition: 01 DC HOME SELF CARE/HOMELESS Condition: STABLE Referrals: NO PCP (PCP) follow up with your doctor in one week Additional Instructions: You were evaluated in the emergency room, your work-up is negative for any acute findings. Follow-up with your doctor in 1 to 2 weeks. It is not unusual for women to have vaginal discharge. Sometimes it depends with where your hormones are during the month. Attending Signature Attending Signature I have reviewed the PA/SECURITIES RESEARCH ANALYST's note and plan of care. I was available for consultation as needed during the patient's visit in the emergency department. I agree with the clinical impression, plan, and disposition. (SHANNON NUÑEZ DO) CHET MORGAN APRN May 13, 2020 17:56 SHANNON NUÑEZ DO May 14, 2020 00:03
[2020-05-13 18:10] LABS: BILIRUBIN,URINE NEGATIVE (NEG); CLARITY,URINE CLEAR; COLOR,URINE YELLOW; NITRITE,URINE NEGATIVE (NEG); PH,URINE 5.5 (<5.0-8.0); PROTEIN,URINE 30 mg/dL (NEG-TRACE)
[2020-05-13 18:33] LABS: WBC,URINE OCC /HPF (0-4)
[2020-05-13 18:34] LABS: BACTERIA,URINE FEW /HPF (0-FEW)
[2020-05-14 20:09] LABS: GC PROBE Negative (Negative)
== END 2020-05-13 19:08 | disposition home or self-care (01) ==
LOC: ER 15:53
DX: N89.8 Other specified noninflammatory disorders of vagina (principal)
CPT/HCPCS: 81001; 81025; 87491; 87591; 99284; Q0111

== ENCOUNTER 2020-09-05 04:13 | Emergency (ER) | payer OTHER ==
[~2020-09-05] VITALS: Ht 165.1 cm; Wt 56.8 kg
[2020-09-05 04:32] VITALS: BP 113/73
[2020-09-05 04:55] LABS: BILIRUBIN,URINE NEGATIVE (NEG); CLARITY,URINE CLEAR; COLOR,URINE YELLOW; NITRITE,URINE NEGATIVE (NEG); PROTEIN,URINE 100 mg/dL (NEG-TRACE)
--- NOTE | 2020-09-05 05:00 | PHYS DOC ---
Past Medical History Past Medical History: No Pertinent History Past Surgical History: No Surgical History Smoking Status: Never Smoker Alcohol Use: None Drug Use: None General Adult EDM: Chief Complaint: MULTIPLE COMPLAINTS HPI: HPI: 25-year-old female denies any significant past medical history presents to the ED with complaints of unprotected intercourse 2 weeks ago, now with abnormal vaginal discharge, is concerned for sexually transmitted infection. Reports she took Plan B due to this is unsure of her last menstrual period. 1 male partner. Denies any associated dyspareunia, vaginal bleeding, fever, nausea, vomiting, flulike symptoms, flank pain, abdominal or pelvic pain, dysuria and hematuria. Review of Systems: Review of Systems: Constitutional: Denies fever or chills. [] Eyes: Denies change in visual acuity. [] HENT: Denies nasal congestion or sore throat. [] Respiratory: Denies cough or shortness of breath. [] Cardiovascular: Denies chest pain or edema. [] GI: Denies nausea, vomiting, : Denies dysuria or vaginal bleeding Musculoskeletal: Denies CVA tenderness or joint pain/swelling Integument: Denies rash or diaphoresis Endocrine: Denies polyuria or polydipsia. [] Psychiatric: Denies depression or anxiety. [] Heart Score: C/O Chest Pain: No Risk Factors: Risk Factors: DM, Current or recent (<one month) smoker, HTN, HLP, family history of CAD, obesity. Risk Scores: Score 0 - 3: 2.5% MACE over next 6 weeks - Discharge Home Score 4 - 6: 20.3% MACE over next 6 weeks - Admit for Clinical Observation Score 7 - 10: 72.7% MACE over next 6 weeks - Early Invasive Strategies Allergies: Allergies: Allergies Coded Allergies Type Severity Reaction Last Updated Verified No Known Drug Allergies 08/23/18 No Physical Exam: PE: Constitutional: Well developed, well nourished, HENT: Normocephalic, atraumatic, Eyes: EOMI, conjunctiva normal, no discharge. Neck: Normal range of motion, supple, Cardiovascular: S1/2 present, regular rhythm Lungs & Thorax: Speaking in full sentences, bilateral equal chest rise, no tachypnea or increased work of breathing Skin: Warm, dry, Extremities: No tenderness, no cyanosis, Neurologic: Alert and oriented X 3, no focal deficits noted. [] Psychologic: Affect normal, judgement normal, mood normal. [] Current Patient Data: Labs: Laboratory Tests Test 09/05/20 04:32 POC Urine HCG, Qualitative Hcg negative (Negative) EKG: EKG: [] Radiology/Procedures: Radiology/Procedures: [] Course & Med Decision Making: Course & Med Decision Making Pertinent Labs and Imaging studies reviewed. (See chart for details) Concern for unprotected intercourse with no associated abdominal pain or vaginal bleeding. negative. Patient well-appearing, hemodynamically stable. Was referred to PCP for blood-borne illness testing recommended partner treatment. Will discharge home with strict ED return precautions were given for dyspnea, abdominal or back pain, fever, leg symptoms or flank pain. Encouraged urgent outpatient follow-up with PMD and CMM PROGRAMMER. Life-threatening processes were considered but are low suspicion at this time, given history, physical exam and ED workup. Pt was educated on all prescription medications and adverse effects. All patient's questions were answered and pt was stable at time of discharge. Life/limb-threatening differential includes but is not limited to, ACS, dysrhythmia, pneumothorax or hemothorax, pulmonary embolus, pneumonia, bronchoconstriction, pulmonary edema, angioedema, epiglottitis, tracheitis, Chris's angina, RPA/HOSE MAKER, anaphylaxis, angioedema, cardiac tamponade or murmurs, pericarditis, myocarditis, poisoning or toxicity, sepsis or autoimmune/n eurologic disease. I spoken with the patient and her caregivers. I explained the patient's condition, diagnoses and treatment plan based on the information available to me at this time. I have answered the patient and her caregiver's questions and addressed any concerns. The patient and her caregivers have a good understanding of patient's diagnosis, condition and treatment plan as can be expected at this point. Vital signs have been stable. Patient's condition is stable and appropriate for discharge from the emergency department. Patient will pursue further outpatient evaluation with primary care physician or other designated or consulting physician as outlined in the discharge instructions. The patient and/or caregivers are agreeable to this plan of care and follow-up instructions have been explained in detail. The patient and/or caregivers have received these instructions in written form and have expressed an understanding of the discharge instructions. The patient and/or caregivers are aware that any significant change of condition or worsening of symptoms should prompt immediate return to this or the closest emergency department or call to [id number] Ty[facility] Disclaimer: Tyrese Disclaimer: This electronic medical record was generated, in whole or in part, using a voice recognition dictation system. Departure Departure Impression: Primary Impression: Encounter for assessment of sexually transmitted disease exposure Additional Impression: Trichomoniasis of vagina Disposition: HOME / SELF CARE / HOMELESS Condition: STABLE Referrals: NO PCP (PCP) Follow-up with your primary care physician in 24 to 48 hours OR FOLLOW UP WITH FAMILY MEDICINE: [address], [address] [place] [address] Patient Instructions: Sexually Transmitted Disease, Trichomoniasis Additional Instructions: FOLLOW UP WITH CMM PROGRAMMER: FOR DEFINITIVE MANAGEMENT [facility] [address], [address] [place] [address] EMERGENCY DEPARTMENT GENERAL DISCHARGE INSTRUCTIONS Thank you for coming to [facility] Emergency Department (ED) today and trusting us with you care. We trust that you had a positive experience in our Emergency Department. If you wish to speak to the department management, you may call the Director at [phone]. YOUR FOLLOW UP INSTRUCTIONS ARE FOLLOWS: 1. Do you have a private Doctor? If you do not have a private doctor, please ask for a resource list of physicians or clinics that may be able to assist you with follow up care. 2. The Emergency Physicain has interpreted your x-rays. The X-Ray specialist will also review them. If there is a change in the findings, you will be notified in 48 hours when at all possible. 3. A lab test or culture has been done, your results will be reviewed and you will be notified if you need a change in treatment. ADDITIONAL INSTRUCTIONS AND INFORMATION: 1. Your care today has been supervised by a physician who is specially trained in emergency care. Many problems require more than one evaluation for a complete diagnosis and treatment. We recommend that you schedule your follow up appointment as recom mended to ensure complete treatment of you illness or injury. If you are unable to obtain follow up care and continue to have a problem, or if your condition worsens, we recommend that you return to the ED. 2. We are not able to safely determine your condition over the phone nor are we able to give sound medical advice over the phone. For these safety reasons, if you call for medical advice we will ask you to come to the ED for further evaluation. 3. If you have any questions regarding these discharge instructions please call the ED at [phone]. SAFETY INFORMATION: In the interest of safety, wellness, and injury prevention; we encourage you to wear your sealbelt, if you smoke; quite smoking, and we encourage family to use a protective helmet for bicycling and other sporting events that present an increased risk for head injury. IF YOUR SYMPTOMS WORSEN OR NEW SYMPTOMS DEVELOP, OR YOU HAVE CONCERNS ABOUT YOUR CONDITION; OR IF YOUR CONDITION WORSENS WHILE YOU ARE WAITING FOR YOUR FOLLOW UP APPOINTMENT; EITHER CONTACT YOUR PRIMARY CARE DOCTOR, THE PHYSICIAN WHOSE NAME AND NUMBER YOU WERE GIVEN, OR RETURN TO THE ED IMMEDIATELY. Scripts Metronidazole (FLAGYL) 500 Mg Tablet 1 TAB PO BID for 10 Days, #20 TAB do not drink alcohol this medication Prov: FAY MCCORMICK DO 09/05/20 Doxycycline Hyclate (DOXYCYCLINE HYCLATE) 100 Mg Capsule 1 CAP PO BID for 7 Days, #14 CAP Prov: FAY MCCORMICK DO 09/05/20 FAY MCCORMICK DO Sep 05, 2020 05:00
[2020-09-05 05:04] LABS: BACTERIA,URINE 0 /HPF (0-FEW); RBC,URINE OCC /HPF (0-2); TRICHOMONAS,URINE PRESENT; WBC,URINE TNTC /HPF (0-4)
[2020-09-05] MEDS ORDERED: cefTRIAXone IM 500 MG VIAL. IM ONE (05:45)
[2020-09-05] MEDS ORDERED: DOXY100C2 PO (05:55)
[2020-09-05] MEDS ORDERED: METR500T PO (05:55)
[2020-09-06 13:15] LABS: GC PROBE Negative (Negative)
== END 2020-09-05 06:18 | disposition home or self-care (01) ==
LOC: ER 04:13
DX: Z20.2 Contact with and (suspected) exposure to infections with a predominantly sexual mode of transmission (principal); A59.01 Trichomonal vulvovaginitis
CPT/HCPCS: 81001; 81025; 87086; 87491; 87591; 96372; 99283; J0696; Q0111; 87077